=== PATIENT | female | born 1975 | race Caucasian/White ===

== ENCOUNTER 2020-04-27 16:00 | Outpatient (REF) | payer OTHER, SELFPAY | END 2020-04-27 16:01 | disposition home or self-care (01) | LOC: HO.LAB 16:00 | PROVIDERS: Visit Provider Internal Medicine | DX: Z20.822 Contact with and (suspected) exposure to COVID-19 (principal) | CPT/HCPCS: 36415; C9803; U0003 ==

== ENCOUNTER 2021-04-19 11:02 | Outpatient (REF) | payer OTHER, SELFPAY ==
[2021-04-19 13:25] LABS: COVID-19 Test Negative (Negative); IDNOW Serial# 16C4AD1C
== END 2021-04-19 11:03 | disposition home or self-care (01) ==
LOC: HO.LAB 11:02
PROVIDERS: Visit Provider Internal Medicine
DX: Z20.822 Contact with and (suspected) exposure to COVID-19 (principal)
CPT/HCPCS: 87635; C9803

== ENCOUNTER 2022-07-29 12:49 | Outpatient (REF) | payer OTHER, SELFPAY ==
--- NOTE | ~2022-07-29 | XR_ITS ---
EXAMINATION: XR THORACIC SPINE CLINICAL INFORMATION: Back pain COMPARISON: None available. TECHNIQUE: 3 views of the thoracic spine were obtained. FINDINGS: Well-corticated ossific density at the anterior inferior upper thoracic vertebral body may reflect early osteophytosis, sequela of prior trauma may be considered in the appropriate clinical setting. XR/XR thoracic spine 3V IMPRESSION: Well-corticated ossific density at the anterior inferior upper thoracic vertebral body may reflect early osteophytosis, sequela of prior trauma may be considered in the appropriate clinical setting.
--- NOTE | ~2022-07-29 | XR_ITS ---
EXAMINATION: XR lumbar spine 6V w bending CLINICAL INFORMATION: Reason for Exam M54.16 - Radiculopathy, lumbar region COMPARISON: None TECHNIQUE: 5 views of the lumbar spine FINDINGS: 5 nonrib-bearing lumbar-type vertebral bodies. Vertebral body heights are maintained. Alignment is maintained. Disc space heights are maintained. Paravertebral soft tissues are unremarkable. XR/XR lumbar spine 6V w bending IMPRESSION: Unremarkable examination.
--- NOTE | ~2022-07-29 | XR_ITS ---
EXAMINATION: XR ANKLE, RIGHT CLINICAL INFORMATION: Ankle pain COMPARISON: None available. TECHNIQUE: AP, lateral, and mortise views of the right ankle. FINDINGS: No acute fracture or dislocation. Ankle mortise is preserved. Calcaneal enthesopathy. XR/XR ankle RT min 3V IMPRESSION: No acute fracture or dislocation. Calcaneal enthesopathy.
== END 2022-07-29 12:50 | disposition home or self-care (01) ==
LOC: HO.XRAY 12:49
PROVIDERS: PCP Internal Medicine; Visit Provider Nurse Practitioner Family
DX: M54.16 Radiculopathy, lumbar region (principal); M25.571 Pain in right ankle and joints of right foot; M54.6 Pain in thoracic spine; G89.29 Other chronic pain; M47.816 Spondylosis without myelopathy or radiculopathy, lumbar region; M62.838 Other muscle spasm
CPT/HCPCS: 72072; 72114; 73610; 99202

== ENCOUNTER 2022-09-04 05:47 | Outpatient (REF) | payer OTHER, SELFPAY | END 2022-09-04 05:48 | disposition home or self-care (01) | LOC: CF 05:47 | PROVIDERS: Visit Provider Internal Medicine | DX: M47.816 Spondylosis without myelopathy or radiculopathy, lumbar region (principal) | CPT/HCPCS: J2795; Q9965 ==